=== PATIENT | female | born 2000 | race Caucasian/White ===

== ENCOUNTER 2019-04-27 16:21 | Emergency (ER) | payer OTHER ==
[2019-04-27 16:37] VITALS: BP 136/89
--- NOTE | 2019-04-27 17:50 | UC ---
UC General HPI - HPI Summary HPI Summary: Patient presents to urgent care today she's been urinating more than normal. Patient denies any abdominal pain. No dysuria. No hematuria. No back pain. No nausea vomiting. No fever. Patient states a couple days ago she had some mild nausea and cramping but this resolved. No sick contacts. No analgesic taken. Patient states she is on oral control. Patient states she's been skipping her. Using the sugar pill for several months per patient states this past week she was on the sugar pill but did not get her period. Patient resumed her normal pills today. Patient has any vaginal discharge, itching, odor. Patient's medications reviewed this visit. - History of Current Complaint Chief Complaint: UCGeneralIllness Stated Complaint: TESTING Time Seen by Provider: 04/27/19 16:41 Hx Obtained From: Patient Hx Last Menstrual Period: 03/19/19 Onset Severity: Mild Current Severity: Mild Pain Intensity: 1 - Allergy/Home Medications Allergies/Adverse Reactions: Allergies Allergy/AdvReac Type Severity Reaction Status Date / Time No Known Allergies Allergy Verified 04/27/19 16:37 Home Medications: Home Medications Control 1 mg PO DAILY 04/27/19 [History Confirmed 04/27/19] Spironolactone 50 mg PO DAILY WITH MEAL 04/27/19 [History Confirmed 04/27/19] PMH/Surg Hx/FS Hx/Imm Hx Previously Healthy: Yes - Surgical History Surgical History: None - Family History Known Family History: Positive: Non-Contributory - Social History Occupation: Student Lives: Dormitory/Roommates Alcohol Use: Occasionally Substance Use Type: None Smoking Status (MU): Never Smoked Tobacco Review of Systems All Other Systems Reviewed And Are Negative: Yes Constitutional: Positive: Negative Skin: Positive: Negative Eyes: Positive: Negative ENT: Positive: Negative Respiratory: Positive: Negative Cardiovascular: Positive: Negative Gastrointestinal: Positive: Negative Genitourinary: Positive: Frequency. Negative: Dysuria, Hematuria, Vaginal/ Penile Burning, Vaginal/Penile Discharge Motor: Positive: Negative Is Patient Immunocompromised?: No Physical Exam - Summary Physical Exam Summary: Vital Signs Reviewed: Yes A+Ox3, no distress Eyes: Conjunctiva Clear, DEVONTE. EOM intact and full ENT: Hearing grossly normal TM x 2 clear, mmoist, uvula midline, no exudate, no erythema Neck: Positive: Supple Respiratory: Positive: No respiratory distress, No accessory muscle use + CTA throughout no w/r Cardiovascular: RRR nl s1, s2 no m/r CBT <2 sec abd soft + BS nt/nd no guarding, no distension, no CVA Musculoskeletal Exam: CASTELLANOS x 4 without difficulty Strength Intact, ROM Intact Neurological: Positive: Alert, + sensation throughout Psychological: Positive: Normal Response To examiner Skin: Positive: no rash, no ecchymosis Triage Information Reviewed: Yes Vital Signs: Initial Vital Signs Temp 99.0 F 04/27/19 16:33 Pulse 73 04/27/19 16:33 Resp 17 04/27/19 16:33 BP 136/89 04/27/19 16:33 Pulse Ox 100 04/27/19 16:33 Course/Dx - Course Course Of Treatment: Patient presents to urgent care for evaluation of urinary frequency. Patient states couple days she'll go she has more abdominal cramping and nausea but this has resolved. Patient has not had any fevers or chills. Patient without any other complaints at today's visit. Patient states she did not appear this last week when she took sugar pills with her control. Patient states she skipped her period for several months. On exam vital signs are stable. Patient without any focal findings. Urine does show blood test is negative. We'll send urine for culture. Discuss with patient Motrin and Tylenol. Hydrate. We'll also send a chemistry hCG given the fact she did not have her period this past week and she has blood in her urine. Patient comfortable and agreeable with plan. Strict return precautions discussed. Patient recommended to follow with [facility] or return with questions or concerns. - Diagnoses Provider Diagnosis: Urinary frequency Discharge ED - Sign-Out/Discharge Documenting (check all that apply): Patient Departure All imaging exams completed and their final reports reviewed: No Studies - Discharge Plan Condition: Stable Disposition: HOME Patient Education Materials: Urinary Urgency and Frequency (DC) Referrals: [facility] [Provider Group] No Primary Care Phys,[facility] [Primary Care Provider] - Additional Instructions: - stay well hydrated. drink plenty of non-alcoholic, noncaffinated beverages - Okay to take ibuprofen (motrin, advil) and tylenol as needed for pain - As discussed,your urine here did not show signs of infection but did has a little blood. It is has been sent for further testing for infection. - As discussed, your blood was sent for testing because your periods are irregular related to you skipping your control pills - your test here was negative today Contact [facility] access hospital to schedule a follow-up appointment. If you have increased pain, vomiting, cramping, fevers, abdominal pain or other concerns it is recommended you go to the emergency department with further questions or concerns - Billing Disposition and Condition Condition: STABLE Disposition: Home
--- NOTE | 2019-04-28 13:17 | UC ---
- Progress Note Progress Note: Called pt - verified - updated regarding neg HCG aware will get a second call if need abx pt comfortable and in agreement with plan Course/Dx - Diagnoses Provider Diagnoses: Urinary frequency Discharge ED - Sign-Out/Discharge Documenting (check all that apply): Post-Discharge Follow Up All imaging exams completed and their final reports reviewed: No Studies - Discharge Plan Condition: Stable Disposition: HOME Patient Education Materials: Urinary Urgency and Frequency (DC) Referrals: [facility] [Provider Group] No Primary Care Phys,[facility] [Primary Care Provider] - Additional Instructions: - stay well hydrated. drink plenty of non-alcoholic, noncaffinated beverages - Okay to take ibuprofen (motrin, advil) and tylenol as needed for pain - As discussed,your urine here did not show signs of infection but did has a little blood. It is has been sent for further testing for infection. - As discussed, your blood was sent for testing because your periods are irregular related to you skipping your control pills - your test here was negative today Contact Critical access hospital to schedule a follow-up appointment. If you have increased pain, vomiting, cramping, fevers, abdominal pain or other concerns it is recommended you go to the emergency department with further questions or concerns - Billing Disposition and Condition Condition: STABLE Disposition: Home
== END 2019-04-27 17:39 | disposition home or self-care (01) ==
LOC: UCEAST 16:21
DX: R35.0 Frequency of micturition (principal); R10.9 Unspecified abdominal pain; R11.0 Nausea
CPT/HCPCS: 36415; 81003; 84702; 87086; 99201; G0463